=== PATIENT | female | born 1960 | race Hispanic/Latino ===

== ENCOUNTER 2017-12-20 13:15 | Emergency (ER) | payer OTHER ==
--- NOTE | 2017-12-20 13:52 | EKG ---
Test Date: 2017-12-20 Test Time: 13:38:36 Assistant Passenger Locomotive Engineer: JOSE MEASUREMENT RESULTS: Intervals: Rate: 86 AZ: 144 QRSD: 96 QT: 382 QTc: 457 Raymond: P: 64 AZ: 144 QRS: 7 T: 21 INTERPRETIVE STATEMENTS: Normal sinus rhythm Normal ECG Compared to ECG 03/09/2017 13:26:19 No significant changes Electronically Signed On 12-20-17 13:52:11 CDT by Butch Delcid
[2017-12-20 14:10] LABS: Absolute Lymphocytes (CBC) 1.8 K/uL (0.7-4.9); Absolute Monocytes 0.3 K/uL (0.1-1.3); Absolute Neutrophil 3.2 K/uL (1.8-8.0); Basophils % 0.6 % (0-1.3); Eosinophils % 0.8 % (0-4.4); Hematocrit 38.9 % (36.0-45.0); Lymphocytes % 33.4 % (15.3-44.8); MCH 30.3 pg (27.0-35.0); MCV 92.3 fL (80-100); MPV 8.1 fL (7.6-11.3); Monocytes % 5.8 % (3.3-12.3); RBC Red Blood Cell Count 4.22 M/uL (3.86-4.86)
[2017-12-20 14:23] LABS: Potassium 3.3 mEq/L (3.6-5.0)
--- NOTE | 2017-12-20 14:33 | RAD REPORT ---
EXAM DESCRIPTION: RAD - Chest Single View - 12/20/2017 2:18 pm CLINICAL HISTORY: Left-sided chest pain COMPARISON: July 2012 TECHNIQUE: AP portable chest image was obtained 1403 hours . FINDINGS: Lungs are clear. Heart and vasculature are normal. No measurable pleural effusion and no p neumothorax. No gross bony abnormality seen. No acute aortic findings suspected. IMPRESSION: No acute cardiopulmonary process. No significant interval change.
[2017-12-20] MEDS ORDERED: POTASSIUM 25 MEQ EFFERV TAB ONE (14:40)
--- NOTE | 2017-12-20 14:57 | EDPHYS ---
Physician Documentation [facility] Name: Itzel Carlos Age: 57 yrs Sex: Female : 1960 Arrival Date: 12/20/2017 Time: 13:18 Bed 4 Private MD: ED Physician Damion Pathak HPI: 12/20 14:47 This 57 yrs old Female presents to ER via Ambulatory with complaints of Chest gs Pain. 14:47 The patient or guardian reports chest pain that is located primarily in the anterior gs chest wall, left. Onset: today, at 11:45. The pain radiates to the left arm. Associated signs and symptoms: Pertinent negatives: diaphoresis, shortness of breath. The chest pain is described as dull. Duration: The patient or guardian reports multiple episodes, that wax and wane, with no pattern, the episodes last approximately 5 second(s). Modifying factors: The symptoms are alleviated by nothing. the symptoms are aggravated by nothing. Severity of pain: At its worst the pain was mild in the emergency department the pain has resolved. The patient has not experienced similar symptoms in the past. Historical: - Allergies: 13:24 NKA; iw - Home Meds: 13:24 None [Active]; iw - PMHx: 13:24 None; iw - PSHx: 13:24 ; iw - Immunization history:: Adult Immunizations not up to date. - Social history:: Smoking status: Patient/guardian denies using tobacco. ROS: 14:47 All other systems are negative. gs Exam: 14:47 Head/Face: Normocephalic, atraumatic. Eyes: Pupils equal round and reactive to light, gs extra-ocular motions intact. Lids and lashes normal. Conjunctiva and sclera are non-icteric and not injected. Cornea within normal limits. Periorbital areas with no swelling, redness, or edema. ENT: Nares patent. No nasal discharge, no septal abnormalities noted. Tympanic membranes are normal and external auditory canals are clear. Oropharynx with no redness, swelling, or masses, exudates, or evidence of obstruction, uvula midline. Mucous membranes moist. Neck: Trachea midline, no thyromegaly or masses palpated, and no cervical lymphadenopathy. Supple, full range of motion without nuchal rigidity, or vertebral point tenderness. No Meningismus. Chest/axilla: Normal chest wall appearance and motion. Nontender with no deformity. No lesions are appreciated. Cardiovascular: Regular rate and rhythm with a normal S1 and S2. No gallops, murmurs, or rubs. Normal PMI, no JVD. No pulse deficits. Respiratory: Lungs have equal breath sounds bilaterally, clear to auscultation and percussion. No rales, rhonchi or wheezes noted. No increased work of breathing, no retractions or nasal flaring. Abdomen/GI: Soft, non-tender, with normal bowel sounds. No distension or tympany. No guarding or rebound. No evidence of tenderness throughout. Back: No spinal tenderness. No costovertebral tenderness. Full range of motion. Skin: Warm, dry with normal turgor. Normal color with no rashes, no lesions, and no evidence of cellulitis. MS/ Extremity: Pulses equal, no cyanosis. Neurovascular intact. Full, normal range of motion. Neuro: Awake and alert, GCS 15, oriented to person, place, time, and situation. Cranial nerves II-XII grossly intact. Motor strength 5/5 in all extremities. Sensory grossly intact. Cerebellar exam normal. Normal gait. 14:47 Constitutional: The patient appears alert, awake. 14:47 ECG was reviewed by the Attending Physician. Vital Signs: 13:24 BP 124 / 86; Pulse 88; Resp 16; Temp 98.2; Pulse Ox 100% on R/A; Weight 53.07 kg; iw Height 5 ft. 0 in. (152.40 cm); Pain 0/10; 14:19 BP 102 / 80; Pulse 83; Resp 17; Pulse Ox 99% on R/A; tw2 14:58 BP 90 / 66; Pulse 82; Resp 15; Pulse Ox 99% on R/A; Pain 0/10; tw2 13:24 Body Mass Index 22.85 (53.07 kg, 152.40 cm) iw MDM: 13:49 Patient medically screened. gs 14:47 Differential diagnosis: coronary artery disease chest wall pain, pneumothorax. HEART gs Score: History: Slightly Suspicious (0), ECG: Normal (0), Age: > 45 and < 65 years (1), Risk Factors: No Risk Factors Known (0), Troponin: < or = 1 x Normal Limit (0), Total Score =. Data reviewed: vital signs, nurses notes. Response to treatment: the patient's symptoms have resolved after treatment, the patient's pain is gone. 12/20 13:50 Order name: Basic Metabolic Panel; Complete Time: 14:31 12/20 13:50 Order name: CBC with Diff; Complete Time: 14:31 12/20 13:50 Order name: Troponin (emerg Dept Use Only); Complete Time: 14:31 12/20 13:50 Order name: XRAY Chest (1 view); Complete Time: 14:39 12/20 13:50 Order name: EKG; Complete Time: 13:50 12/20 13:50 Order name: Cardiac monitoring; Complete Time: 13:55 12/20 13:50 Order name: EKG - Nurse/Tech; Complete Time: 13:55 12/20 13:50 Order name: IV Saline Lock; Complete Time: 13:55 12/20 13:50 Order name: Labs collected and sent; Complete Time: 13:55 12/20 13:50 Order name: O2 Per Protocol; Complete Time: 13:55 12/20 13:50 Order name: O2 Sat Monitoring; Complete Time: 13:55 gs EC:47 Rate is 86 beats/min. Rhythm is regular. WI interval is normal. QRS interval is normal. gs T waves are Normal. No ST changes noted. Clinical impression: Normal ECG. Interpreted by me. Administered Medications: 14:47 Drug: Potassium Effervescent Tablet 25 mEq Route: PO; tw2 15:05 Follow up: Response: No adverse reaction tw2 Disposition: 12/20/17 14:57 Discharged to Home. Impression: Chest pain, unspecified. - Condition is Stable. - Discharge Instructions: Nonspecific Chest Pain. - Medication Reconciliation Form, Thank You Letter, Antibiotic Education, Prescription Opioid Use form. - Follow up: Private Physician; When: 2 - 3 days; Reason: Re-evaluation by your physician. Follow up: Butch Delcid MD; When: 2 - 3 days; Reason: Re-evaluation by your physician. Signatures: Dispatcher [employer] Myra Duran RN RN Sandy Melendez RN RN tw2 Damion Pathak MD MD
--- NOTE | 2017-12-20 14:57 | ER ---
Nurse's Notes [facility] Name: Itzel Carlos Age: 57 yrs Sex: Female : 1960 Arrival Date: 12/20/2017 Time: 13:18 Bed 4 Private MD: Diagnosis: Chest pain, unspecified Presentation: 12/20 13:22 Presenting complaint: Patient states: started having left sided chest pain that feels iw like sharp needles poking her, started an hour ago, intermittent, has happened 7 times in last hour, lasts a few seconds, also has had intermittent numbness to left hand and left hand pain this morning. Transition of care: patient was not received from another setting of care. Onset of symptoms was December 20, 2017. Initial Sepsis Screen: Does the patient meet any 2 criteria? No. Patient's initial sepsis screen is negative. Does the patient have a suspected source of infection? No. Patient's initial sepsis screen is negative. Care prior to arrival: None. 13:22 Method Of Arrival: Ambulatory iw 13:22 Acuity: YOHAN 3 iw Historical: - Allergies: 13:24 NKA; iw - Home Meds: 13:24 None [Active]; iw - PMHx: 13:24 None; iw - PSHx: 13:24 ; iw - Immunization history:: Adult Immunizations not up to date. - Social history:: Smoking status: Patient/guardian denies using tobacco. Screenin:22 Abuse screen: Denies threats or abuse. Nutritional screening: No deficits noted. tw2 Tuberculosis screening: No symptoms or risk factors identified. Fall Risk None identified. Assessment: 13:30 General: Appears in no apparent distress. slender, well groomed, Behavior is calm, tw2 cooperative, appropriate for age. Pain: Pain radiates to left arm Pain began "earlier this morning i noticed my chest hurt and i was getting some tingling in my left arm and hand, it went away, but then i was at work and it came back". Neuro: Level of Consciousness is awake, alert, obeys commands, Oriented to person, place, time, situation. Cardiovascular: Denies shortness of breath, Heart tones S1 S2 Capillary refill < 3 seconds Patient's skin is warm and dry. Respiratory: Airway is patent Respiratory effort is even, unlabored, Respiratory pattern is regular, symmetrical, Breath sounds are clear bilaterally. GI: No signs and/or symptoms were reported involving the gastrointestinal system. Abdomen is flat, Bowel sounds present X 4 quads. : No signs and/or symptoms were reported regarding the genitourinary system. EENT: No signs and/or symptoms were reported regarding the EENT system. Derm: Skin is intact, Skin is dry, Skin temperature is warm. Musculoskeletal: Range of motion: intact in all extremities. 14:19 Reassessment: Patient appears in no apparent distress at this time. No changes from tw2 previously documented assessment. Patient and/or family updated on plan of care and expected duration. Pain level reassessed. Patient is alert, oriented x 3, equal unlabored respirations, skin warm/dry/pink. 15:06 Reassessment: Patient appears in no apparent distress at this time. No changes from tw2 previously documented assessment. Patient and/or family updated on plan of care and expected duration. Pain level reassessed. Patient is alert, oriented x 3, equal unlabored respirations, skin warm/dry/pink. Vital Signs: 13:24 BP 124 / 86; Pulse 88; Resp 16; Temp 98.2; Pulse Ox 100% on R/A; Weight 53.07 kg; iw Height 5 ft. 0 in. (152.40 cm); Pain 0/10; 14:19 BP 102 / 80; Pulse 83; Resp 17; Pulse Ox 99% on R/A; tw2 14:58 BP 90 / 66; Pulse 82; Resp 15; Pulse Ox 99% on R/A; Pain 0/10; tw2 13:24 Body Mass Index 22.85 (53.07 kg, 152.40 cm) iw ED Course: 13:18 Patient arrived in ED. mr 13:24 Triage completed. iw 13:24 Arm band placed on. iw 13:26 Placed in gown. Bed in low position. shredding machine operator on. Pulse ox on. NIBP on. tw2 13:26 No provider procedures requiring assistance completed. Patient maintains SpO2 tw2 saturation greater than 95% on room air. 13:29 Sandy Melendez RN is Primary Nurse. tw2 13:35 Damion Pathak MD is Attending Physician. gs 13:52 EKG done, by vacuum technician. reviewed by Jesus Manuel Myers MD. tc 14:03 X-ray completed. Portable x-ray completed in exam room. Patient tolerated procedure mh1 well. 14:03 XRAY Chest (1 view) In Process Unspecified. EDMS 14:07 Initial lab(s) drawn, by me, sent to lab. Inserted saline lock: 20 gauge in right jb1 antecubital area, using aseptic technique. Blood collected. 14:57 Butch Delcid MD is Referral Physician. gs 15:06 IV discontinued, intact, bleeding controlled, No redness/swelling at site. Pressure tw2 dressing applied. Administered Medications: 14:47 Drug: Potassium Effervescent Tablet 25 mEq Route: PO; tw2 15:05 Follow up: Response: No adverse reaction tw2 Outcome: 14:57 Discharge ordered by MD. gs 15:06 Discharged to home ambulatory. tw2 15:06 Condition: stable 15:06 Discharge instructions given to patient, Instructed on discharge instructions, follow up and referral plans. Demonstrated understanding of instructions, follow-up care. 15:07 Patient left the ED. tw2 Signatures: Dispatcher [employer] EDMS Jaya Green [employer] [facility] Nieves Meyer mr [employer]vy 1 Myra Pradhan, RN RN Martita Hernandez, advertising designer EKG Ttc Sandy Melendez RN RN tw2 Damion Pathak MD MD Corrections: (The following items were deleted from the chart) 14:22 13:30 Musculoskeletal: Range of motion: tw2 tw2
[2017-12-20 15:20] VITALS: TEMP 98.2
[2017-12-20 15:21] VITALS: O2SAT 99
[2017-12-20 15:23] VITALS: BP 90/66
== END 2017-12-20 15:07 | disposition home or self-care (01) ==
LOC: ER 13:15
DX: R07.9 Chest pain, unspecified (principal)
CPT/HCPCS: 36415; 71045; 80048; 84484; 85025; 93005; 99285